=== PATIENT | male | born 1990 | race Caucasian/White ===

== ENCOUNTER 2017-06-18 21:16 | Emergency (ER) | payer OTHER ==
[2017-06-18 21:59] VITALS: BP 144/86
[2017-06-18] MEDS ORDERED: Acetaminop/Codeine 30 MG TAB* 1 TAB (300 MG/30 MG) PO ONE (22:25)
--- NOTE | 2017-06-18 22:28 | UC ---
Respiratory Complaint HPI - HPI Summary HPI Summary: cough and congestion for about two weeks. There is also a sore throat. No fever. - History of Current Complaint Chief Complaint: UCRespiratory Stated Complaint: SORE THROAT/CONGESTION Time Seen by Provider: 06/18/17 22:22 Hx Obtained From: Patient Onset/Duration: Lasting Days, Lasting Weeks Timing: Constant Severity Initially: Moderate Severity Currently: Moderate Aggravating Factors: Deep Breaths, Recumbent Position Alleviating Factors: Upright Position, Spontaneous Resolution Associated Signs And Symptoms: Positive: URI, Nasal Congestion, Hoarseness. Negative: Dyspnea, Fever, Chills - Risk Factors Pulmonary Embolism Risk Factors: Negative - Allergies/Home Medications Allergies/Adverse Reactions: Allergies Allergy/AdvReac Type Severity Reaction Status Date / Time No Known Allergies Allergy Verified 06/18/17 21:59 PMH/Surg Hx/FS Hx/Imm Hx Previously Healthy: No - smoker. - Surgical History Surgical History: None - Family History Known Family History: Positive: Cardiac Disease, Hypertension - Social History Alcohol Use: Occasionally Substance Use Type: None Substance Use Comment - Amount & Last Used: prior marijuana use- last year Smoking Status (MU): Current Every Day Smoker Type: Cigarettes Amount Used/How Often: 2 CIGS/2WKS Length of Time of Smoking/Using Tobacco: ON AND OFF FOR 8 YRS Have You Smoked in the Last Year: Yes When Did the Patient Quit Smoking/Using Tobacco: 09/03/13 Household Exposure Type: Cigarettes - Immunization History Most Recent Influenza Vaccination: not this season Most Recent Tetanus Shot: unknown Review of Systems ENT: Sore Throat, Nasal Discharge Respiratory: Cough All Other Systems Reviewed And Are Negative: Yes Physical Exam Triage Information Reviewed: Yes Appearance: Well-Appearing, No Pain Distress, Well-Nourished Vital Signs: Initial Vital Signs Temp 98.9 F 06/18/17 21:55 Pulse 94 06/18/17 21:55 Resp 16 06/18/17 21:55 BP 144/86 06/18/17 21:55 Pulse Ox 100 06/18/17 21:55 Vital Signs Reviewed: Yes Eyes: Positive: Conjunctiva Clear ENT: Positive: Normal ENT inspection, Pharyngeal erythema, Nasal congestion, TMs normal. Negative: Nasal drainage, TM bulging, TM dull, TM red, Tonsillar swelling, Tonsillar exudate, Trismus, Muffled voice, Hoarse voice, Dental tenderness Neck: Positive: Supple, Nontender, No Lymphadenopathy Respiratory: Positive: Chest non-tender, Lungs clear, Normal breath sounds, No respiratory distress, No accessory muscle use, Respiratory distress Cardiovascular: Positive: RRR, No Murmur, Pulses Normal, Brisk Capillary Refill Abdomen Description: Positive: Nontender, No Organomegaly, Soft Musculoskeletal: Positive: Strength Intact, ROM Intact, No Edema Neurological: Positive: Alert, Muscle Tone Normal Skin: Negative: rashes UC Diagnostic Evaluation - Laboratory O2 Sat by Pulse Oximetry: 100 Respiratory Course/Dx - Differential Dx/Diagnosis Provider Diagnoses: acute bronchitis Discharge - Discharge Plan Condition: Good Disposition: HOME Prescriptions: Acetaminop/Codeine 30 MG TAB* [Tylenol/Codeine 30 MG TAB*] 1 tab PO Q8H PRN #20 tab MDD 3 PRN Reason: Cough Azithromyxin SAGAR (NF) [Z-Sagar (Zithromax) 250 mg tabs #6] 2 tab PO .TODAY, THEN 1 DAILY #6 tab Patient Education Materials: Upper Respiratory Infection (ED) Referrals: Izaiah Sloan MD [Primary Care Provider] - If Needed Additional Instructions: Start taking robitussin DM as well.
== END 2017-06-18 22:33 | disposition home or self-care (01) ==
LOC: UCCORT 21:16
DX: J20.9 Acute bronchitis, unspecified (principal); Z72.0 Tobacco use
CPT/HCPCS: 99212; A9270-GY; G0463

== ENCOUNTER 2018-01-23 15:36 | Emergency (ER) | payer OTHER ==
[2018-01-23 17:04] VITALS: BP 136/89
--- NOTE | 2018-01-23 17:10 | UC ---
Throat Pain/Nasal Deep HPI - HPI Summary HPI Summary: Sore throat began 2 days ago. Had a cough earlier in the week and some nasal drainage. Fever began today. no known illness exposures - History of Current Complaint Hx Obtained From: Patient Onset/Duration: Sudden Onset, Lasting Days - 4, Worse Since - Past 2 days Pain Intensity: 8 Pain Scale Used: 0-10 Numeric Cough: Nonproductive Associated Signs & Symptoms: Positive: Nasal Discharge, Fever <Za Daniel - Last Filed: 01/23/18 17:18> <Jeanne Shipman - Last Filed: 01/23/18 18:15> - History of Current Complaint Chief Complaint: UCGeneralIllness Stated Complaint: SORE THROAT, ACHES Time Seen by Provider: 01/23/18 16:57 - Allergies/Home Medications Allergies/Adverse Reactions: Allergies Allergy/AdvReac Type Severity Reaction Status Date / Time No Known Allergies Allergy Verified 06/18/17 21:59 Home Medications: Home Medications Montelukast Sodium TAB* [Singulair 10 MG TAB*] 10 mg PO BEDTIME 01/23/18 [ History Confirmed 01/23/18] PMH/Surg Hx/FS Hx/Imm Hx Previously Healthy: Yes - Surgical History Surgical History: None - Family History Known Family History: Positive: Cardiac Disease, Hypertension - Social History Occupation: Employed Full-time - In in the exact same reason to is the second row behind, probably a [employer] Lives: With Family Alcohol Use: Occasionally Substance Use Type: None Substance Use Comment - Amount & Last Used: prior marijuana use- last year Smoking Status (MU): Current Every Day Smoker Type: Cigarettes Amount Used/How Often: 1 pk per wk Length of Time of Smoking/Using Tobacco: ON AND OFF FOR 7 YRS Have You Smoked in the Last Year: Yes When Did the Patient Quit Smoking/Using Tobacco: 09/03/13 Household Exposure Type: Cigarettes - Immunization History Most Recent Influenza Vaccination: not this season Most Recent Tetanus Shot: unknown <Za Daniel - Last Filed: 01/23/18 17:18> Review of Systems Constitutional: Fever, Chills, Fatigue Skin: Negative Eyes: Negative ENT: Negative, Sore Throat Respiratory: Negative Cardiovascular: Negative Gastrointestinal: Negative Genitourinary: Negative Motor: Negative Neurovascular: Negative Musculoskeletal: Negative, Arthralgia Neurological: Negative, Headache Psychological: Negative Is Patient Immunocompromised?: No All Other Systems Reviewed And Are Negative: Yes <Za Daniel - Last Filed: 01/23/18 17:18> Physical Exam Triage Information Reviewed: Yes Appearance: Well-Nourished, Ill-Appearing, Pain Distress Vital Signs: Initial Vital Signs Temp 100.3 F 01/23/18 16:59 Pulse 109 01/23/18 16:59 Resp 18 01/23/18 16:59 BP 136/89 01/23/18 16:59 Pulse Ox 99 01/23/18 16:59 Vital Signs Reviewed: Yes Eye Exam: Normal Eyes: Positive: Conjunctiva Clear ENT Exam: Normal ENT: Positive: Normal ENT inspection, Hearing grossly normal, Pharyngeal erythema, Nasal congestion, TMs normal, Uvula midline. Negative: Trismus, Muffled voice, Hoarse voice, Dental tenderness, Sinus tenderness Dental Exam: Normal Neck exam: Normal Neck: Positive: Supple, Nontender, No Lymphadenopathy Respiratory Exam: Normal Respiratory: Positive: Chest non-tender, Lungs clear, Normal breath sounds, No respiratory distress, No accessory muscle use Cardiovascular Exam: Normal Cardiovascular: Positive: RRR, No Murmur, Pulses Normal, Brisk Capillary Refill Musculoskeletal Exam: Normal Musculoskeletal: Positive: Strength Intact, ROM Intact Neurological Exam: Normal Neurological: Positive: Alert, Muscle Tone Normal Psychological Exam: Normal Skin Exam: Normal <Za Daniel - Last Filed: 01/23/18 17:18> Vital Signs: Initial Vital Signs Temp 100.3 F 01/23/18 16:59 Pulse 109 01/23/18 16:59 Resp 18 01/23/18 16:59 BP 136/89 01/23/18 16:59 Pulse Ox 99 01/23/18 16:59 <Jeanne Shipman - Last Filed: 01/23/18 18:15> Diagnostics - Laboratory Diagnostic Studies Completed/Ordered: RST (+) <Za Daniel - Last Filed: 01/23/18 17:18> Throat Pain/Nasal Course/Dx - Course Assessment/Plan: Amoxicillin, pain control follow with pcp prn - Differential Dx/Diagnosis Provider Diagnoses: Strep pharyngitis <Za Daniel - Last Filed: 01/23/18 17:18> Discharge - Sign-Out/Discharge Documenting (check all that apply): Discharge/Admit/Transfer - Billing Disposition and Condition Condition: STABLE Disposition: Home <Za Daniel - Last Filed: 01/23/18 17:18> - Billing Disposition and Condition Condition: STABLE Disposition: Home <Jeanne Shipman - Last Filed: 01/23/18 18:15> - Discharge Plan Condition: Stable Disposition: HOME Prescriptions: Amoxicillin PO (*) [Amoxicillin 875 MG (*)] 875 mg PO BID #20 tab Hydrocodone/Acetaminophen [Hydrocodone-Acetamin 5-325 mg] 1 each PO QID PRN #6 tablet MDD 4 PRN Reason: pain Patient Education Materials: Strep Throat (ED) Referrals: Izaiah Sloan MD [Primary Care Provider] - If Needed Attestation Statement User Type: Provider - I was available for consult. This patient was seen by the [facility]. The patient was not presented to, seen by, or examined by me. -Jeremiasj <Jeanne Shipman - Last Filed: 01/23/18 18:15>
== END 2018-01-23 17:22 | disposition home or self-care (01) ==
LOC: UCCORT 15:36
DX: J02.0 Streptococcal pharyngitis (principal); R09.89 Other specified symptoms and signs involving the circulatory and respiratory systems; F17.210 Nicotine dependence, cigarettes, uncomplicated
CPT/HCPCS: 87651; 99212; G0463

== ENCOUNTER 2018-01-25 19:41 | Emergency (ER) | payer OTHER ==
[2018-01-25] MEDS ORDERED: Albuterol/Ipratropium NEB.SOL* Albuterol 2.5 MG/Ipratropium 0.5 MG 3 ML ONE (20:40)
[2018-01-25] MEDS ORDERED: Cephalexin CAP* 500 MG PO ONE ×3 (21:04→21:25)
[2018-01-25 21:07] VITALS: BP 134/99
--- NOTE | 2018-01-25 21:07 | UC ---
Skin Complaint HPI - HPI Summary HPI Summary: patient had a :fungal rash between 4/5 toe on left foot and behind 2/3 toe left foot----is now worse (from sweating and scratching) is crusted and scabbed, with 4-cm of erythema no streaking chills or fever. Patient states when he gets home after work his toes or wet and wrinkled from the sweat inside of his shoes- --he is also wears black socks - History of Current Complaint Chief Complaint: UCSkin Time Seen by Provider: 01/25/18 20:55 Stated Complaint: FOOT SORES Hx Obtained From: Patient Onset/Duration: Gradual Onset, Lasting Weeks, Still Present Onset Severity: Mild Current Severity: Moderate Location: Discrete Character: Redness Aggravating Factor(s): Other - working and sweating Alleviating Factor(s): Nothing Associated Signs & Symptoms: Positive: Drainage, Tenderness - Allergy/Home Medications Allergies/Adverse Reactions: Allergies Allergy/AdvReac Type Severity Reaction Status Date / Time No Known Allergies Allergy Verified 01/25/18 21:01 Home Medications: Home Medications Amphetamine MIXED SALT TAB* [Adderall TAB*] 30 mg DAILY 01/25/18 [History Confirmed 01/25/18] Review of Systems Constitutional: Negative Skin: Other - scabbed itching area between left 4/5 toe, peeling skin behind left 2/3 toe Eyes: Negative ENT: Negative Respiratory: Negative Cardiovascular: Negative Gastrointestinal: Negative Genitourinary: Negative Motor: Negative Neurovascular: Negative Musculoskeletal: Negative Neurological: Negative Psychological: Negative Is Patient Immunocompromised?: No All Other Systems Reviewed And Are Negative: Yes PMH/Surg Hx/FS Hx/Imm Hx Previously Healthy: No - ADHD Respiratory History: Asthma - Surgical History Surgical History: None - Family History Known Family History: Positive: Cardiac Disease, Hypertension - Social History Occupation: Employed Full-time Lives: With Family Alcohol Use: Occasionally Substance Use Type: None Substance Use Comment - Amount & Last Used: prior marijuana use- last year Smoking Status (MU): Current Every Day Smoker Type: Cigarettes Amount Used/How Often: 1 pk per wk Length of Time of Smoking/Using Tobacco: ON AND OFF FOR 7 YRS Have You Smoked in the Last Year: Yes When Did the Patient Quit Smoking/Using Tobacco: 09/03/13 Household Exposure Type: Cigarettes - Immunization History Most Recent Influenza Vaccination: not this season Most Recent Tetanus Shot: unknown Physical Exam Triage Information Reviewed: Yes Appearance: Well-Appearing, No Pain Distress, Obese Vital Signs Reviewed: Yes Eye Exam: Normal Eyes: Positive: Conjunctiva Clear ENT Exam: Normal ENT: Positive: Normal ENT inspection, Hearing grossly normal. Negative: Muffled voice, Hoarse voice, Dental tenderness Dental Exam: Normal Neck exam: Normal Neck: Positive: Supple, Nontender Respiratory Exam: Normal Respiratory: Positive: Chest non-tender, No respiratory distress, No accessory muscle use Cardiovascular Exam: Normal Cardiovascular: Positive: RRR, No Murmur, Brisk Capillary Refill Musculoskeletal Exam: Normal Musculoskeletal: Positive: Strength Intact, ROM Intact, No Edema Neurological Exam: Normal Neurological: Positive: Alert, Muscle Tone Normal Psychological Exam: Normal Skin Exam: Normal Skin: Positive: breakdown - behind 2/3 toes and between 4/5 toes on right foot Course/Dx - Course Course Of Treatment: --antifungal cream, keflex, culture wound, white socks and change frequently, refused work note. follow with pcp - Diagnoses Provider Diagnoses: fungal infection left foot with secondary cellulitis Discharge - Sign-Out/Discharge Documenting (check all that apply): Discharge/Admit/Transfer - Discharge Plan Condition: Stable Disposition: HOME Prescriptions: Cephalexin CAP* [Keflex CAP*] 500 mg PO QID #28 cap Patient Education Materials: Antifungals (On the skin), Cellulitis (ED), Jock Itch (ED) Referrals: Izaiah Sloan MD [Primary Care Provider] - 1 Week - Billing Disposition and Condition Condition: STABLE Disposition: Home
--- NOTE | 2018-01-26 16:03 | ED ---
Progress - Progress Note Progress Note: Patient on keflex, culture comes back MRSA. Script changed from keflex to bactrim DS. Nurses notified and will call to update the patient. Course/Dx - Course Course Of Treatment: --antifungal cream, keflex, culture wound, white socks and change frequently, refused work note. follow with pcp Discharge - Sign-Out/Discharge Documenting (check all that apply): Discharge/Admit/Transfer - Discharge Plan Condition: Stable Disposition: HOME Prescriptions: Cephalexin CAP* [Keflex CAP*] 500 mg PO QID #28 cap Sulfamethox/Trimethoprim DS* [Bactrim DS 800/160 TAB*] 1 tab PO BID #20 tab Patient Education Materials: Antifungals (On the skin), Cellulitis (ED), Jock Itch (ED) Referrals: Izaiah Sloan MD [Primary Care Provider] - 1 Week - Billing Disposition and Condition Condition: STABLE Disposition: Home
== END 2018-01-25 21:31 | disposition home or self-care (01) ==
LOC: UCCORT 19:41
DX: B35.3 Tinea pedis (principal); L03.116 Cellulitis of left lower limb; E66.9 Obesity, unspecified; F17.210 Nicotine dependence, cigarettes, uncomplicated
CPT/HCPCS: 87070; 87077; 87186; 87205; 87640; 87641; 99212; A9270-GY; G0463

== ENCOUNTER 2018-01-27 17:37 | Emergency (ER) | payer OTHER ==
[2018-01-27 19:01] VITALS: BP 150/89
--- NOTE | 2018-01-27 19:53 | UC ---
Skin Complaint HPI - HPI Summary HPI Summary: here to get foot rechecked and straighten out antibiodic RX. also has some sores inside of his nose-- - History of Current Complaint Chief Complaint: UCSkin Time Seen by Provider: 01/27/18 19:25 Stated Complaint: SKIN COMPLAINT Hx Obtained From: Patient Onset/Duration: Gradual Onset, Lasting Days Timing: Constant Pain Intensity: 0 Location: Discrete Aggravating Factor(s): Nothing Alleviating Factor(s): Treatment [employer]IST: - keflex has been helping - Allergy/Home Medications Allergies/Adverse Reactions: Allergies Allergy/AdvReac Type Severity Reaction Status Date / Time No Known Allergies Allergy Verified 01/27/18 19:01 Home Medications: Home Medications Cetirizine* [ZyrTEC 10 MG TAB*] 10 mg PO DAILY 01/27/18 [History Confirmed 01/27] Review of Systems Constitutional: Negative Skin: Other - scabbing drainage pain and redness improving left 4/5 toe and behind toes Eyes: Negative ENT: Other - sore red sores inside nose Respiratory: Negative Cardiovascular: Negative Gastrointestinal: Negative Genitourinary: Negative Motor: Negative Neurovascular: Negative Musculoskeletal: Negative Neurological: Negative Psychological: Negative Is Patient Immunocompromised?: No All Other Systems Reviewed And Are Negative: Yes PMH/Surg Hx/FS Hx/Imm Hx Previously Healthy: Yes - Surgical History Surgical History: None - Family History Known Family History: Positive: Cardiac Disease, Hypertension - Social History Occupation: Employed Full-time Lives: With Family Alcohol Use: Occasionally Substance Use Type: None Substance Use Comment - Amount & Last Used: prior marijuana use- last year Smoking Status (MU): Current Every Day Smoker Type: Cigarettes Amount Used/How Often: 1 pk per wk Length of Time of Smoking/Using Tobacco: ON AND OFF FOR 7 YRS Have You Smoked in the Last Year: Yes When Did the Patient Quit Smoking/Using Tobacco: 09/03/13 Household Exposure Type: Cigarettes - Immunization History Most Recent Influenza Vaccination: not this season Most Recent Tetanus Shot: unknown Physical Exam Triage Information Reviewed: Yes Appearance: Well-Appearing, No Pain Distress, Well-Nourished Vital Signs: Initial Vital Signs Temp 98.1 F 01/27/18 18:54 Pulse 95 01/27/18 18:54 Resp 18 01/27/18 18:54 BP 150/89 01/27/18 18:54 Pulse Ox 99 01/27/18 18:54 Vital Signs Reviewed: Yes Eye Exam: Normal Eyes: Positive: Conjunctiva Clear ENT Exam: Normal ENT: Positive: Normal ENT inspection, Hearing grossly normal, Pharynx normal, TMs normal, Tonsillar swelling, Tonsillar exudate, Other - red irratation and sore in left nostril Dental Exam: Normal Neck exam: Normal Neck: Positive: Supple, Nontender, No Lymphadenopathy Respiratory Exam: Normal Respiratory: Positive: Chest non-tender, Lungs clear, Normal breath sounds, No respiratory distress, No accessory muscle use Cardiovascular Exam: Normal Cardiovascular: Positive: RRR, No Murmur, Pulses Normal, Brisk Capillary Refill Musculoskeletal Exam: Normal Musculoskeletal: Positive: Strength Intact, ROM Intact, No Edema Neurological Exam: Normal Neurological: Positive: Alert, Muscle Tone Normal Psychological Exam: Normal Psychological: Positive: Normal Response To Family Skin: Positive: Other - resovling rash erythema drainage 4/5 toes, less pain and tenderness Course/Dx - Course Course Of Treatment: stop amoxicillin,, continue keflex and bactrim, and soap and water wash, antifungal cream, bactroban in nose, follow wounds and bp with pcp - Diagnoses Provider Diagnoses: fungal infection with secondary MRSA infection Discharge - Sign-Out/Discharge Documenting (check all that apply): Discharge/Admit/Transfer - Discharge Plan Condition: Stable Disposition: HOME Prescriptions: Mupirocin 2% OINT* [Bactroban 2 % Oint*] 1 applic TOPICAL BID #1 tube Patient Education Materials: MRSA (Methicillin-Resistant Staphylococcus Aureus ) (ED), Hypertension (ED) Referrals: Izaiah Sloan MD [Primary Care Provider] - 2 Weeks Additional Instructions: please take Bactrim and Keflex---you may stop the amoxicillin---- - Billing Disposition and Condition Condition: STABLE Disposition: Home
== END 2018-01-27 20:12 | disposition home or self-care (01) ==
LOC: UCCORT 17:37
DX: B48.8 Other specified mycoses (principal); A49.02 Methicillin resistant Staphylococcus aureus infection, unspecified site; L98.8 Other specified disorders of the skin and subcutaneous tissue; R09.89 Other specified symptoms and signs involving the circulatory and respiratory systems; F17.210 Nicotine dependence, cigarettes, uncomplicated
CPT/HCPCS: 99212; G0463

== ENCOUNTER 2018-02-04 18:22 | Emergency (ER) | payer OTHER ==
[2018-02-04 19:43] VITALS: BP 157/94
--- NOTE | 2018-02-04 20:02 | UC ---
Skin Complaint HPI - HPI Summary HPI Summary: Pt here for recheck of MRSA, bacterial and fungal infection of bilateral plantar aspect of feet. Pt states he completed the prescribed antibiotic an dis using the antifungal cream with improvement of skin but is concerned that the skin is not healing fully. - History of Current Complaint Chief Complaint: UCSkin Time Seen by Provider: 02/04/18 19:50 Stated Complaint: REDNESS,BILATERAL FEET Hx Obtained From: Patient Onset/Duration: Gradual Onset, Lasting Days, Still Present Skin Exposure Onset/Duration: Days Ago Timing: Constant Onset Severity: Moderate Current Severity: Mild Pain Intensity: 2 Location: Discrete, Foot (Right), Foot (Left) Character: Pruritus, Redness Aggravating Factor(s): Touch Alleviating Factor(s): Other - antibiotics, and antifungal Associated Signs & Symptoms: Positive: Rash, Tenderness - Allergy/Home Medications Allergies/Adverse Reactions: Allergies Allergy/AdvReac Type Severity Reaction Status Date / Time No Known Allergies Allergy Verified 01/27/18 19:01 Review of Systems Constitutional: Negative Skin: Other - healing wounds, peeling skin, mild erythema Eyes: Negative ENT: Negative Respiratory: Negative Cardiovascular: Negative Gastrointestinal: Negative Genitourinary: Negative Motor: Negative Neurovascular: Negative Musculoskeletal: Negative, Calf Tenderness Psychological: Negative Is Patient Immunocompromised?: No All Other Systems Reviewed And Are Negative: Yes PMH/Surg Hx/FS Hx/Imm Hx Previously Healthy: Yes - Surgical History Surgical History: None - Family History Known Family History: Positive: Cardiac Disease, Hypertension - Social History Occupation: Employed Full-time Lives: With Family Alcohol Use: Occasionally Substance Use Type: None Substance Use Comment - Amount & Last Used: prior marijuana use- last year Smoking Status (MU): Current Every Day Smoker Type: Cigarettes Amount Used/How Often: 1 pk per wk Length of Time of Smoking/Using Tobacco: ON AND OFF FOR 7 YRS Have You Smoked in the Last Year: Yes When Did the Patient Quit Smoking/Using Tobacco: 09/03/13 Household Exposure Type: Cigarettes - Immunization History Most Recent Influenza Vaccination: not this season Most Recent Tetanus Shot: unknown Physical Exam Triage Information Reviewed: Yes Appearance: Well-Appearing Vital Signs: Initial Vital Signs Temp 98.7 F 02/04/18 19:38 Pulse 109 02/04/18 19:38 Resp 16 02/04/18 19:38 BP 157/94 06/20/18 19:38 Pulse Ox 98 02/04/18 19:38 Vital Signs Reviewed: Yes ENT: Positive: Hearing grossly normal Neck exam: Normal Respiratory: Positive: No respiratory distress Musculoskeletal Exam: Normal Neurological Exam: Normal Psychological Exam: Normal Skin Exam: Other - peeling skin between first -third toes with erythematous skin revealed underneath. Course/Dx - Differential Diagnoses - Skin Complaint Differential Diagnoses: Tinea - Diagnoses Provider Diagnoses: tinea pedis bilateral. healing wounds Discharge - Sign-Out/Discharge Documenting (check all that apply): Discharge/Admit/Transfer - Discharge Plan Condition: Stable Disposition: HOME Prescriptions: Fluconazole 100 MG TAB* [Diflucan 100 MG TAB*] 100 mg PO DAILY #7 tab Patient Education Materials: Athlete's Foot (ED) Referrals: Izaiah Sloan MD [Primary Care Provider] - - Billing Disposition and Condition Condition: STABLE Disposition: Home
== END 2018-02-04 20:08 | disposition home or self-care (01) ==
LOC: UCCORT 18:22
DX: B35.9 Dermatophytosis, unspecified (principal); F17.210 Nicotine dependence, cigarettes, uncomplicated; Z86.14 Personal history of Methicillin resistant Staphylococcus aureus infection
CPT/HCPCS: 99212; G0463

== ENCOUNTER 2018-02-14 19:16 | Emergency (ER) | payer OTHER ==
[2018-02-14 21:23] VITALS: BP 121/87
--- NOTE | 2018-02-14 21:29 | UC ---
Skin Complaint HPI - HPI Summary HPI Summary: C/O rash on the left foot over the last month. Not better. Rx with bactrim and mupiricin and fluconazole. MRSA on culture. - History of Current Complaint Chief Complaint: UCLowerExtremity Time Seen by Provider: 02/14/18 21:22 Stated Complaint: L FOOT SKIN CONDITION Hx Obtained From: Patient Onset/Duration: Gradual Onset, Lasting Weeks - 4, Still Present Onset Severity: Mild Current Severity: Mild Pain Intensity: 2 Location: Foot (Left) - in between the left 4th and 5th toes. - Allergy/Home Medications Allergies/Adverse Reactions: Allergies Allergy/AdvReac Type Severity Reaction Status Date / Time No Known Allergies Allergy Verified 01/27/18 19:01 Review of Systems Skin: Rash Is Patient Immunocompromised?: No All Other Systems Reviewed And Are Negative: Yes PMH/Surg Hx/FS Hx/Imm Hx Other Neurological History: ADHD - Surgical History Surgical History: None - Family History Known Family History: Positive: Cardiac Disease, Hypertension, Diabetes - Social History Occupation: Employed Full-time Lives: With Family Alcohol Use: Occasionally Substance Use Type: None Substance Use Comment - Amount & Last Used: prior marijuana use- last year Smoking Status (MU): Current Every Day Smoker Type: Cigarettes Amount Used/How Often: 1 pk per wk Length of Time of Smoking/Using Tobacco: ON AND OFF FOR 7 YRS Have You Smoked in the Last Year: Yes When Did the Patient Quit Smoking/Using Tobacco: 09/03/13 Household Exposure Type: Cigarettes - Immunization History Most Recent Influenza Vaccination: not this season Most Recent Tetanus Shot: unknown Physical Exam Triage Information Reviewed: Yes Appearance: Well-Appearing, No Pain Distress, Well-Nourished Vital Signs: Initial Vital Signs Temp 98.5 F 02/14/18 21:09 Pulse 98 02/14/18 21:09 Resp 18 02/14/18 21:09 BP 121/87 02/14/18 21:09 Pulse Ox 98 02/14/18 21:09 Vital Signs Reviewed: Yes Eyes: Positive: Conjunctiva Clear Neck exam: Normal Respiratory Exam: Normal Cardiovascular Exam: Normal Musculoskeletal Exam: Normal Neurological Exam: Normal Psychological Exam: Normal Skin: Positive: rashes - Left 4th 5th toe webspace with erythema extending up onto the foot. Course/Dx - Differential Diagnoses - Skin Complaint Differential Diagnoses: Abscess, Cellulitis, Eczema, Tinea - Diagnoses Provider Diagnoses: Cellulitis. Eczema. Tinea pedis Discharge - Sign-Out/Discharge Documenting (check all that apply): Discharge/Admit/Transfer - Discharge Plan Condition: Stable Disposition: HOME Prescriptions: Betamethasone Dip 0.05% ON(NF) [Betamethasone Dipr 0.05% OINT(NF)] 1 applic .SEE ORDER BID #30 gm DOXYcycline CAP(*) [DOXYcycline 100MG CAP(*)] 100 mg PO BID #20 cap Ketoconazole 2 % CREAM (NF) [Nizoral 2% CREAM (NF)] 1 applic TOPICAL BID #30 gm Patient Education Materials: Eczema (ED), Athlete's Foot (ED), MRSA ( Methicillin-Resistant Staphylococcus Aureus) (ED), Doxycycline (By mouth) Referrals: Izaiah Sloan MD [Primary Care Provider] - - Billing Disposition and Condition Condition: STABLE Disposition: Home Images Feet (Multiple View): 1 - Erythema with some induration and maceration and skin thickening and cracking.
[2018-02-14] MEDS: DOXYcycline CAP(*) 100 MG PO ONE ×2 (21:52)
== END 2018-02-14 21:54 | disposition home or self-care (01) ==
LOC: UCCORT 19:16
DX: L03.116 Cellulitis of left lower limb (principal); L30.9 Dermatitis, unspecified; B35.3 Tinea pedis; Z87.891 Personal history of nicotine dependence
CPT/HCPCS: 99212; A9270-GY; G0463

== ENCOUNTER 2018-04-12 08:13 | Emergency (ER) | payer OTHER ==
[2018-04-12 08:42] VITALS: BP 132/89
--- NOTE | 2018-04-12 09:27 | UC ---
General HPI - HPI Summary HPI Summary: sore throat since yesterday. both children with sore throat and fever. no rash or fever in pt. - History of Current Complaint Chief Complaint: UCRespiratory Stated Complaint: THROAT COMPLAINT Time Seen by Provider: 04/12/18 08:26 Hx Obtained From: Patient Onset/Duration: Gradual Onset Timing: Constant Pain Intensity: 3 Aggravating: nothing Associated Signs & Symptoms: Negative: Fever - Allergy/Home Medications Allergies/Adverse Reactions: Allergies Allergy/AdvReac Type Severity Reaction Status Date / Time environmental Allergy Congestion Uncoded 04/12/18 08:43 Home Medications: Home Medications Adderall Instant 10 mg PO QPM 04/12/18 [History] PMH/Surg Hx/FS Hx/Imm Hx - Additional Past Medical History Additional PMH: allergies - Surgical History Surgical History: None - Family History Known Family History: Positive: Cardiac Disease, Hypertension, Diabetes - Social History Lives: With Family Alcohol Use: Occasionally Substance Use Type: None Substance Use Comment - Amount & Last Used: prior marijuana use- last year Smoking Status (MU): Current Every Day Smoker Type: Cigarettes Amount Used/How Often: 1 pk per wk Length of Time of Smoking/Using Tobacco: ON AND OFF FOR 7 YRS Have You Smoked in the Last Year: Yes When Did the Patient Quit Smoking/Using Tobacco: 09/03/13 Household Exposure Type: Cigarettes - Immunization History Most Recent Influenza Vaccination: not this season Most Recent Tetanus Shot: unknown Vaccination Up to Date: Yes Review of Systems Constitutional: Negative Skin: Negative Eyes: Negative ENT: Sore Throat Respiratory: Negative Cardiovascular: Negative Gastrointestinal: Negative Genitourinary: Negative Motor: Negative Neurovascular: Negative Musculoskeletal: Negative Neurological: Negative Psychological: Negative Is Patient Immunocompromised?: No All Other Systems Reviewed And Are Negative: Yes Physical Exam Triage Information Reviewed: Yes Appearance: Well-Appearing Vital Signs: Initial Vital Signs Temp 97.9 F 04/12/18 08:38 Pulse 76 04/12/18 08:38 Resp 16 04/12/18 08:38 BP 132/89 04/12/18 08:38 Pulse Ox 98 04/12/18 08:38 Vital Signs Reviewed: Yes Eyes: Positive: Conjunctiva Clear ENT: Positive: Pharyngeal erythema, TMs normal. Negative: Nasal congestion, Nasal drainage Neck: Positive: Supple, Nontender, No Lymphadenopathy Respiratory: Positive: Lungs clear, Normal breath sounds Cardiovascular: Positive: RRR, No Murmur Abdomen Description: Positive: Nontender, No Organomegaly, Soft Bowel Sounds: Positive: Present Musculoskeletal: Positive: ROM Intact Neurological: Positive: Alert Psychological: Positive: Normal Response To Family, Age Appropriate Behavior Skin Exam: Normal Skin: Negative: rashes Diagnostics - Laboratory Diagnostic Studies Completed/Ordered: rapid strep=neg Course/Dx - Course Course Of Treatment: rapid strep=neg. tx supportive - Differential Dx - Multi-Symptom Provider Diagnoses: sore throat Discharge - Sign-Out/Discharge Documenting (check all that apply): Patient Departure All imaging exams completed and their final reports reviewed: No Studies - Discharge Plan Condition: Stable Disposition: HOME Patient Education Materials: Pharyngitis (ED) Referrals: Izaiah Sloan MD [Primary Care Provider] - 7 Days - Billing Disposition and Condition Condition: STABLE Disposition: Home
== END 2018-04-12 09:41 | disposition home or self-care (01) ==
LOC: UCCORT 08:13
DX: J02.9 Acute pharyngitis, unspecified (principal); F17.210 Nicotine dependence, cigarettes, uncomplicated; Z91.09 Other allergy status, other than to drugs and biological substances
CPT/HCPCS: 87651; 99211; G0463

== ENCOUNTER 2018-04-28 19:51 | Emergency (ER) | payer OTHER ==
[2018-04-28 20:20] VITALS: BP 150/96
--- NOTE | 2018-04-28 20:42 | UC ---
Throat Pain/Nasal Deep HPI - HPI Summary HPI Summary: 27-year-old male coming in with a sore throat. His son recently had strep throat. He's had white exudates on the tonsils. Hurts to swallow. He's had some rhinorrhea. A dry cough. No chest congestion. No fever today. No abdominal pain. - History of Current Complaint Chief Complaint: UCGeneralIllness Stated Complaint: SORE THROAT Time Seen by Provider: 04/28/18 20:32 Pain Intensity: 3 - Allergies/Home Medications Allergies/Adverse Reactions: Allergies Allergy/AdvReac Type Severity Reaction Status Date / Time environmental Allergy Congestion Uncoded 04/28/18 20:20 PMH/Surg Hx/FS Hx/Imm Hx Previously Healthy: Yes Other Endocrine History: ADHD - Surgical History Surgical History: None - Family History Known Family History: Positive: Cardiac Disease, Hypertension, Diabetes - Social History Alcohol Use: Occasionally Substance Use Type: None Substance Use Comment - Amount & Last Used: prior marijuana use- last year Smoking Status (MU): Current Every Day Smoker Type: Cigarettes Amount Used/How Often: 1 pk per wk Length of Time of Smoking/Using Tobacco: ON AND OFF FOR 7 YRS Have You Smoked in the Last Year: Yes When Did the Patient Quit Smoking/Using Tobacco: 09/03/13 Household Exposure Type: Cigarettes - Immunization History Most Recent Influenza Vaccination: not this season Most Recent Tetanus Shot: unknown Vaccination Up to Date: Yes Review of Systems Constitutional: Negative Skin: Negative Eyes: Negative ENT: Sore Throat, Nasal Discharge, Sinus Congestion, Sinus Pain/Tenderness Respiratory: Negative Cardiovascular: Negative Gastrointestinal: Negative Genitourinary: Negative Motor: Negative Neurovascular: Negative Musculoskeletal: Negative Neurological: Negative Psychological: Negative Is Patient Immunocompromised?: No All Other Systems Reviewed And Are Negative: Yes Physical Exam Triage Information Reviewed: Yes Appearance: Well-Appearing, No Pain Distress, Well-Nourished Vital Signs: Initial Vital Signs Temp 98.4 F 04/28/18 20:17 Pulse 108 04/28/18 20:17 Resp 18 04/28/18 20:17 BP 150/96 04/28/18 20:17 Pulse Ox 99 04/28/18 20:17 Vital Signs Reviewed: Yes Eye Exam: Normal Eyes: Positive: Conjunctiva Clear ENT: Positive: Nasal congestion, Nasal drainage, TMs normal, Tonsillar swelling , Tonsillar exudate. Negative: Trismus, Muffled voice Neck exam: Normal Neck: Positive: Supple Respiratory Exam: Normal Respiratory: Positive: Lungs clear, Normal breath sounds, No respiratory distress Cardiovascular: Positive: Tachycardia Abdominal Exam: Normal Musculoskeletal Exam: Normal Musculoskeletal: Positive: Strength Intact, ROM Intact Neurological Exam: Normal Psychological Exam: Normal Skin Exam: Normal Throat Pain/Nasal Course/Dx - Course Course Of Treatment: DISCUSSED VIRAL VERSES BACTERIAL INFECTION AND THE ROLE OF ANTIBIOTICS. THE PATIENT WISHES TO BE ON ANTIBIOTICS AT THIS TIME. - Differential Dx/Diagnosis Provider Diagnoses: TONSILLITIS Discharge - Sign-Out/Discharge Documenting (check all that apply): Patient Departure All imaging exams completed and their final reports reviewed: No Studies - Discharge Plan Condition: Stable Disposition: HOME Prescriptions: Amoxicillin PO (*) [Amoxicillin 875 MG (*)] 875 mg PO BID #20 tab Patient Education Materials: Tonsillitis (ED) Referrals: Izaiah Sloan MD [Primary Care Provider] - Additional Instructions: FOLLOW UP WITH YOUR DOCTOR. GET RECHECKED FOR ANY WORSENING OF YOUR CONDITION OR QUESTIONS OR CONCERNS. - Billing Disposition and Condition Condition: STABLE Disposition: Home - Attestation Statements Document Initiated by Scribe: Rose
== END 2018-04-28 20:48 | disposition home or self-care (01) ==
LOC: UCCORT 19:51
DX: J03.90 Acute tonsillitis, unspecified (principal); Z20.828 Contact with and (suspected) exposure to other viral communicable diseases; F17.210 Nicotine dependence, cigarettes, uncomplicated
CPT/HCPCS: 87651; 99212; G0463

== ENCOUNTER 2018-05-16 15:48 | Emergency (ER) | payer OTHER ==
[2018-05-16 16:26] VITALS: BP 134/99
--- NOTE | 2018-05-16 17:19 | UC ---
Throat Pain/Nasal Deep HPI - HPI Summary HPI Summary: C/O sore throat x 1 week worse on the left side. Congestion and cough. H/O strep. - History of Current Complaint Stated Complaint: ST,DIFFICULTY SWALLOWING Hx Obtained From: Patient Onset/Duration: Gradual Onset, Lasting Weeks - 1, Still Present Severity: Moderate Pain Intensity: 8 Cough: Nonproductive Associated Signs & Symptoms: Positive: Dysphagia, Nasal Discharge. Negative: Wheezing, Hoarseness, Sinus Discomfort Related History: Seasonal Allergies - Allergies/Home Medications Allergies/Adverse Reactions: Allergies Allergy/AdvReac Type Severity Reaction Status Date / Time environmental Allergy Congestion Uncoded 04/28/18 20:20 PMH/Surg Hx/FS Hx/Imm Hx Previously Healthy: Yes - Surgical History Surgical History: None Surgery Procedure, Year, and Place: denies - Family History Known Family History: Positive: Cardiac Disease, Hypertension, Diabetes - Social History Occupation: Employed Full-time Lives: With Family Alcohol Use: Occasionally Substance Use Type: None Substance Use Comment - Amount & Last Used: prior marijuana use- last year Smoking Status (MU): Light Every Day Tobacco Smoker Type: Cigarettes Amount Used/How Often: 1 pk per wk Length of Time of Smoking/Using Tobacco: ON AND OFF FOR 7 YRS Have You Smoked in the Last Year: Yes When Did the Patient Quit Smoking/Using Tobacco: 09/03/13 Household Exposure Type: Cigarettes Cessation Counseling: Patient Advised to Stop - Immunization History Most Recent Influenza Vaccination: not this season Most Recent Tetanus Shot: unknown Vaccination Up to Date: Yes Review of Systems ENT: Sore Throat, Nasal Discharge Respiratory: Cough Is Patient Immunocompromised?: No All Other Systems Reviewed And Are Negative: Yes Physical Exam Triage Information Reviewed: Yes Appearance: No Pain Distress, Well-Nourished Vital Signs: Initial Vital Signs Temp 98.5 F 05/16/18 16:21 Pulse 103 05/16/18 16:21 Resp 18 05/16/18 16:21 BP 134/99 05/16/18 16:21 Pulse Ox 98 05/16/18 16:21 Vital Signs Reviewed: Yes Eyes: Positive: Conjunctiva Clear ENT: Positive: Pharynx normal, Nasal congestion, TMs normal, Tonsillar swelling Neck exam: Normal Respiratory: Positive: Wheezing - Mild expiratory wheeze with coughing. Cardiovascular Exam: Normal Musculoskeletal Exam: Normal Neurological Exam: Normal Psychological Exam: Normal Skin Exam: Normal Throat Pain/Nasal Course/Dx - Differential Dx/Diagnosis Differential Diagnosis/HQI/PQRI: Laryngitis, Pharyngitis, Sinusitis, URI Provider Diagnoses: Acute URI. Allergic rhinitis Discharge - Sign-Out/Discharge Documenting (check all that apply): Patient Departure All imaging exams completed and their final reports reviewed: No Studies - Discharge Plan Condition: Stable Disposition: HOME Prescriptions: Fluticasone NASAL SPRAY 50MCG* [Flonase NASAL SPRAY 50MCG*] 2 spray BOTH NARES DAILY #1 btl Montelukast Sodium 10 mg PO BEDTIME #30 tablet Patient Education Materials: Upper Respiratory Infection (DC), Allergic Rhinitis (ED) Referrals: Izaiah Sloan MD [Primary Care Provider] - Additional Instructions: NEILMED SINUS RINSE: CHECK OUT AT [employer] Saline nasal wash helps with mucous, allergies and congestion. It can be used up to twice a day or only as needed. Use lukewarm tap water. It does not have to be sterilized or distilled water. Do 1/3 on each side and snort out of both nostrils. Repeat the process with 1/6 of the bottle on each side with snorting in between to finish the solution in the bottle - Billing Disposition and Condition Condition: STABLE Disposition: Home
== END 2018-05-16 17:44 | disposition home or self-care (01) ==
LOC: UCCORT 15:48
DX: J06.9 Acute upper respiratory infection, unspecified (principal); J30.9 Allergic rhinitis, unspecified
CPT/HCPCS: 87651; 99212; G0463

== ENCOUNTER 2018-07-23 21:36 | Emergency (ER) | payer OTHER ==
[2018-07-23 21:54] VITALS: BP 145/89
[2018-07-23] MEDS ORDERED: Benzonatate CAP* 100 MG PO ONE (22:25)
--- NOTE | 2018-07-23 22:25 | UC ---
Throat Pain/Nasal Deep HPI - HPI Summary HPI Summary: 3 days of sore throat, malaise, cough with poor sleep. Concerned that he has strep. Changed to vaping in preference to cigarette smoking 2 months ago. - History of Current Complaint Chief Complaint: UCGeneralIllness Stated Complaint: SORE THOAT Time Seen by Provider: 07/23/18 22:18 Hx Obtained From: Patient Onset/Duration: Gradual Onset, Lasting Days - 3 Severity: Moderate Pain Intensity: 6 Cough: Nonproductive Associated Signs & Symptoms: Positive: Sinus Discomfort - Allergies/Home Medications Allergies/Adverse Reactions: Allergies Allergy/AdvReac Type Severity Reaction Status Date / Time environmental Allergy Congestion Uncoded 07/23/18 21:54 PMH/Surg Hx/FS Hx/Imm Hx Previously Healthy: Yes Psychological History: Other - attention deficit disorder. - Surgical History Surgical History: None Surgery Procedure, Year, and Place: denies - Family History Known Family History: Positive: Cardiac Disease, Hypertension, Diabetes - Social History Occupation: Employed Full-time Alcohol Use: Occasionally Substance Use Type: None Substance Use Comment - Amount & Last Used: prior marijuana use- last year Smoking Status (MU): Light Every Day Tobacco Smoker Type: eCigarettes Amount Used/How Often: 1 pk per wk Length of Time of Smoking/Using Tobacco: ON AND OFF FOR 7 YRS Have You Smoked in the Last Year: Yes When Did the Patient Quit Smoking/Using Tobacco: 09/03/13 Household Exposure Type: Cigarettes - Immunization History Most Recent Influenza Vaccination: not this season Most Recent Tetanus Shot: unknown Vaccination Up to Date: Yes Review of Systems All Other Systems Reviewed And Are Negative: Yes Constitutional: Positive: Fatigue Skin: Positive: Negative Eyes: Positive: Negative ENT: Positive: Sore Throat, Nasal Discharge, Sinus Congestion Respiratory: Positive: Negative Cardiovascular: Positive: Negative Gastrointestinal: Positive: Negative Genitourinary: Positive: Negative Motor: Positive: Negative Neurovascular: Positive: Negative Musculoskeletal: Positive: Negative Neurological: Positive: Negative Psychological: Positive: Negative Is Patient Immunocompromised?: No Physical Exam Triage Information Reviewed: Yes Appearance: Ill-Appearing - looks mildly unwell, Obese Vital Signs: Initial Vital Signs Temp 97.6 F 07/23/18 21:51 Pulse 98 07/23/18 21:51 Resp 15 07/23/18 21:51 BP 145/89 07/23/18 21:51 Pulse Ox 99 07/23/18 21:51 Eyes: Positive: Conjunctiva Inflamed - mild injection ENT: Positive: Pharyngeal erythema Neck: Positive: Supple, Nontender, No Lymphadenopathy Respiratory: Positive: Lungs clear, Normal breath sounds Cardiovascular: Positive: RRR, No Murmur Musculoskeletal Exam: Normal Neurological Exam: Normal Psychological Exam: Normal Skin Exam: Normal Throat Pain/Nasal Course/Dx - Course Course Of Treatment: symptomatic treatment. - Differential Dx/Diagnosis Differential Diagnosis/HQI/PQRI: Laryngitis, Pharyngitis, Tonsillitis, URI Provider Diagnosis: URI, acute Discharge - Sign-Out/Discharge Documenting (check all that apply): Patient Departure All imaging exams completed and their final reports reviewed: No Studies - Discharge Plan Condition: Stable Disposition: HOME Prescriptions: Benzonatate CAP* [Tessalon 100 MG CAP*] 100 mg PO TID PRN #30 cap PRN Reason: Cough Referrals: Izaiah Sloan MD [Primary Care Provider] - Additional Instructions: Continue symptomatic treatment of viral illness. Use tessalon perles for suppression of cough. - Billing Disposition and Condition Condition: STABLE Disposition: Home
== END 2018-07-23 22:36 | disposition home or self-care (01) ==
LOC: UCCORT 21:36
DX: J06.9 Acute upper respiratory infection, unspecified (principal); F17.210 Nicotine dependence, cigarettes, uncomplicated
CPT/HCPCS: 87651; 99212; A9270-GY; G0463

== ENCOUNTER 2018-07-26 12:26 | Emergency (ER) | payer OTHER ==
--- OUTSIDE RECORDS SUMMARY | 2018-07-26 12:35 | XMS REPORT | Continuity of Care Document ---
:1990 External Reference #:[id number] Author Name Izaiah Sloan M.D. Address [address] [facility] [place] [address] Care Team Providers Name Role Phone Izaiah Sloan M.D. Care Team Information Medical Dir Unavailable Payers Type Date Identification Numbers Payment Provider Subscriber Policy Number: [id number] [facility] Jordyn Joseph PayID: [id number] [address] [place] [address] Advance Directives Description No Information Available Problems Description No Information Family History Date Family Member(s) Problem(s) Comments Father Diabetes Mellitus Type 2 Mother Diabetes Mellitus Type 2 First Daughter No Current Problems Social History Type Date Description Comments Sex Unknown Education Highest level completed, Vocational Degree Lives With Spouse Lives With Daughter Lives With Son Smoke-Free Home is smoke-free Occupation Manufacturing [employer] Tobacco Use Start: Unknown End: Quit Unknown Tobacco Use Start: Unknown vape ETOH Use Occasionally consumes alcohol Recreational Drug Use Denies Drug Use Tobacco Use Reviewed: 07/24/18 Patient is a current smoker, vape smokes some days Smoking Status Reviewed: 07/24/18 Patient is a current smoker, vape smokes some days Tattoo/Piercing Pierced ears Tattoo/Piercing Pierced nipples Tattoo/Piercing Pierced tongue Sun Exposure Does not use sunscreen Sun Exposure 11/23/2015 Uses greater than 30 SPF Seat Belt/Car Seat Sometimes uses seat belt Smoke Alarms Yes Allergies, Adverse Reactions, Alerts Date Description Reaction Status Severity Comments 01/18/2015 NKDA Active 02/24/2018 Environmental Active Medications Medication Date Status Form Strength Qnty SIG Indications Ordering Provider Prednisone 12/07/ Hx Tablets 20mg 18tab 3 tab by J98.01 Nathalia, 2018 - s mouth every Renny. 08/02/ day for 3 M.D. 2018 days then 2 by mouth daily for 3 days then 1 by mouth daily for 3 days Amphetamine-Dex 02/24/ Active Tablets 10mg 30tab 1 tab by F90.1 christo Sloanamphetamine 2018 s mouth every Renny. day in the M.D. afternoon Drysol 02/15/ Active Solution 20% 60ml apply to Nathalia2017 affected Renny. area 2-3 M.D. times a week at bed. wash off in in the morning Montelukast 10/04/ Active Tablets 10mg 30tab 1 tab by J45.20 Nathalia Sodium 2017 s mouth every Renny. evening M.D. Amphetamine-Dex 10/04/ Active Caps ER 30mg 30cap 1 by mouth F90.1 ashok Sloanet ER 2017 24HR s every day RennyCurtis MChelsie Acetaminophen 11/16/ Active Tablets 500mg 2 by mouth Nathalia Extra Strength 2015 every 4 Renny. times per M.D. day. Cetirizine HCL 00/ Active Tablets 10mg 1 tab by Unknown 0000 mouth every day as needed Indomethacin 12/06/ Hx Capsules 25mg 90cap 1 by mouth K08.8 Nathalia, 2017 - s three times Renny. 02/24/ a day M.D. 2018 Venlafaxine HCL 12/06/ Hx Caps ER 75mg 30cap 1 by mouth F43.21 DENNIS Sloan 2017 - 24HR s every day Renny. 05/07/ M.D. 2017 Amoxicillin 03/21/ Hx Tablets 500mg 30tab 1 by mouth J03.90 Manjeet 2016 - s three times Otilio 03/31/ a day Kindra Martinez 2016 Amphetamine-Dex 11/29/ Hx Caps ER 30mg 30cap 1 by mouth F90.1 christo Sloanamphet ER 2016 - 24HR s every day Renny. 10/04/ M.D. 2017 Amphetamine-Dex 11/29/ Hx Tablets 20mg 90tab 1 tab by christo Sloanamphetamine 2016 - s mouth three Renny. 10/04/ times a day M.D. 2017 Penicillin V 11/22/ Hx Tablets 500mg 40tab 1 by mouth K04.7 Nathalia, Potassium 2016 - s four times a Renny. 12/02/ day M.D. 2016 Acetaminophen-C 11/22/ Hx Tablets 300-30mg 14tab 1 tab by K04.7 Nathalia odeine #3 2016 s mouth every Renny. 6 hours as M.D. needed pain Fluoxetine HCL 11/22/ Hx Capsules 40mg 90cap 1 by mouth Nathalia, 2016 - s every day Renny. 10/04/ M.D. 2017 Amphetamine-Dex 11/16/ Hx Caps ER 30mg 90cap 2 tabs by F90.1 Nathalia, troamphet ER 2016 - 24HR s mouth every Renny. 11/29/ day every M.D. 2016 morning and 1 in the afternoon. Viagra 11/16/ Hx Tablets 100mg 6tabs 1 by mouth N52.8 Nathalia, 2016 - 30 minutes Renny. 10/04/ before M.D. 2017 intercourse Naproxen 11/16/ Hx Tablets 500mg 60tab 1 by mouth K08.8 Nathalia, 2016 - s twice a day Renny. 12/06/ M.D. 2017 Cialis 10/11/ Hx Tablets 5mg 30tab 1 by mouth N52.2 Nathalia, 2016 - s as needed at Renny. 10/04/ least 1 hour M.D. 2017 before intercourse. Amoxicillin 09/29/ Hx Tablets 500mg 30tab 1 by mouth J01.90 Natahlia, 2016 - s three times Renny. 10/09/ a day M.D. 2016 Amphetamine-Dex 09/06/ Hx Caps ER 20mg 60cap 2 tabs by F90.1 Nathalia, troamphet ER 2016 - 24HR s mouth every Renny. 11/16/ day M.D. 2016 Sulfamethoxazol 09/06/ Hx Tablets 800-160mg 28tab 1 tab by N45.1 Nathalia e/Trimethoprim 2015 - s mouth twice Renny. DS 09/20/ a day M.D. 2016 Cipro 07/23/ Hx Tablets 500mg 14tab 1 by mouth N45.1 Nathalia, 2015 - s twice a day Renny. 07/30/ M.D. 2015 Strattera 07/21/ Hx Capsules 60mg 30cap 1 by mouth Nathalia, 2014 - s every day Renny. M.DCurtis 2014 Strattera 07/21/ Hx Capsules 80mg 30cap 1 by mouth F90.1 Nathalia, 2014 - s every day Renny. M.D. 2016 Doxycycline 07/20/ Hx Capsules 100mg 20cap 1 by mouth N45.1 Nathalia Hyclate 2014 - s twice a day Izaiah Freeman M.DCurtis 2014 Adderall XR 07/12/ Hx Caps ER 30mg 30cap 1 by mouth F90.1 Nathalia, 2014 - 24HR s every day Renny. M.DCurtis 2016 Nicoderm CQ 05/12/ Hx Patches 7mg/24HR 30uni 1 patch Nathalia, 2014 - 24HR ts every day Renny. M.DCurtis 2016 Adderall XR 05/11/ Hx Caps ER 15mg 180ca 1 tabs by F90.1 Nathalia, 2014 - 24HR ps mouth twice RennyCurtis 07/12/ a day in the M.D. 2015 morning Code B Adderall XR 05/09/ Hx Caps ER 10mg 60cap take one to F90.1 Nathalia, 2014 - 24HR s two capsules Renny. 05/11/ by mouth M.D. 2014 every day (maximum daily dose=2) Fluoxetine HCL 03/27/ Hx Capsules 40mg 90cap 1 by mouth Nathalia, 2014 - s every day Ernny. M.D. 2016 Amphetamine-Dex 03/08/ Hx Caps ER 10mg 60cap 1-2 tabs by 314.01 christo Sloanamphet ER 2015 - 24HR s mouth every Renny. 05/09/ day M.D. 2014 Fluoxetine HCL / Hx Capsules 20mg 30cap 1 by mouth Nathalia, - s every day Renny. M.D. 2015 Doxycycline / Hx Capsules 100mg 1 by mouth Unknown Hyclate 0000 - twice a day 2017 Medications Administered in Office Medication Date Status Form Strength Qnty SIG Indications Ordering Provider TB Intradermal Administered Injection Izaiah Sloan Test 018 A. M.DCurtis Immunizations CPT Code Status Date Vaccine Lot # [id number] Given 08/29/2014 Adacel-DTaP 11-64 Yrs Of Age [id number] Vital Signs Date Vital Result Comment 07/24/2018 11:38am Weight 244.38 lb BP Systolic 130 mmHg BP Diastolic 80 mmHg Body Temperature 96.6 F Height 73 inches 6'1" BMI (Body Mass Index) 32.2 kg/m2 07/06/2018 4:27pm Weight 244.00 lb BP Systolic 136 mmHg BP Diastolic 86 mmHg Body Temperature 98.0 F Height 73 inches 6'1" BMI (Body Mass Index) 32.2 kg/m2 06/05/2018 4:20pm Weight 238.00 lb BP Systolic 110 mmHg BP Diastolic 60 mmHg Body Temperature 97.5 F Height 73 inches 6'1" BMI (Body Mass Index) 31.4 kg/m2 02/24/2018 4:18pm Weight 247.12 lb BP Systolic 140 mmHg BP Diastolic 88 mmHg Body Temperature 98.8 F Height 73 inches 6'1" BMI (Body Mass Index) 32.6 kg/m2 11/24/2017 2:06pm Weight 253.00 lb BP Systolic 140 mmHg BP Diastolic 80 mmHg Body Temperature 97.7 F Height 73 inches 6'1" BMI (Body Mass Index) 33.4 kg/m2 05/07/2017 3:22pm Weight 245.00 lb BP Systolic 142 mmHg BP Diastolic 90 mmHg Body Temperature 97.9 F Height 73 inches 6'1" BMI (Body Mass Index) 32.3 kg/m2 12/06/2016 9:25am Weight 243.00 lb BP Systolic 126 mmHg BP Diastolic 84 mmHg Body Temperature 97.7 F Height 73 inches 6'1" Heart Rate 64 /min BMI (Body Mass Index) 32.1 kg/m2 10/04/2016 10:29am Weight 241.75 lb BP Systolic 110 mmHg BP Diastolic 70 mmHg Body Temperature 97.8 F Height 73 inches 6'1" Heart Rate 72 /min BMI (Body Mass Index) 31.9 kg/m2 04/25/2016 1:14pm Weight 244.00 lb BP Systolic 120 mmHg BP Diastolic 70 mmHg Body Temperature 98.5 F Height 73 inches 6'1" Heart Rate 88 /min BMI (Body Mass Index) 32.2 kg/m2 03/21/2016 9:56am Weight 243.00 lb BP Systolic 144 mmHg BP Diastolic 98 mmHg Body Temperature 98.1 F Height 73 inches 6'1" BMI (Body Mass Index) 32.1 kg/m2 11/23/2015 3:51pm Weight 230.38 lb BP Systolic 120 mmHg BP Diastolic 80 mmHg Body Temperature 98.0 F Height 73 inches 6'1" Heart Rate 64 /min BMI (Body Mass Index) 30.4 kg/m2 11/17/2015 10:53am Weight 230.00 lb BP Systolic 138 mmHg BP Diastolic 90 mmHg Body Temperature 98.4 F Height 73 inches 6'1" Heart Rate 60 /min BMI (Body Mass Index) 30.3 kg/m2 2015 1:52pm Weight 221.00 lb BP Systolic 149 mmHg BP Diastolic 84 mmHg Body Temperature 97.5 F 09/29/2015 10:30am Weight 211.12 lb BP Systolic 114 mmHg BP Diastolic 72 mmHg Body Temperature 97.7 F 09/06/2015 3:28pm Weight 217.00 lb BP Systolic 110 mmHg BP Diastolic 80 mmHg Body Temperature 97.6 F 07/20/2015 3:51pm Weight 217.00 lb BP Systolic 124 mmHg BP Diastolic 76 mmHg Body Temperature 98.1 F 05/11/2015 11:35am Weight 215.00 lb BP Systolic 122 mmHg BP Diastolic 74 mmHg Body Temperature 97.7 F 03/30/2015 3:54pm Weight 225.00 lb BP Systolic 130 mmHg BP Diastolic 80 mmHg Body Temperature 98.4 F 03/08/2015 4:24pm Weight 232.00 lb BP Systolic 140 mmHg BP Diastolic 90 mmHg Body Temperature 98.3 F 01/24/2015 4:18pm Weight 228.00 lb BP Systolic 120 mmHg BP Diastolic 84 mmHg Body Temperature 97.9 F 01/18/2015 4:21pm Weight 236.00 lb BP Systolic 114 mmHg BP Diastolic 76 mmHg Body Temperature 98.2 F Results Test Date Facility Test Result H/L Range Note CT/GC Amplified 07/20/2015 [facility] C. Trachomatis NEGATIVE (Neg) 1 N. Gonorrhoeae NEGATIVE (Neg) 2 Comment IMPORTANT REM <SEE NOTE> 3 Laboratory test finding 07/20/2015 [facility] Urine Culture SPECIMEN DESCRI> 4 1 SOURCE - URINE, COLLECTION METHOD NOT SPECIFIED BY AMPLIFIED DNA PROBE PERFORMED BY [address] [address] 2 SOURCE - URINE, COLLECTION METHOD NOT SPECIFIED BY AMPLIFIED DNA PROBE PERFORMED BY [address] [address] 3 IMPORTANT REMINDERS ABOUT URINE SPECIMEN COLLECTION THE PATIENT SHOULD NOT HAVE URINATED FOR AT LEAST ONE HOUR PRIOR TO COLLECTION. FEMALE PATIENTS SHOULD NOT CLEANSE PRIOR TO COLLECTING URINE SPECIMENS THIS MAY INTERFERE WITH THE TEST. THE PATIENT SHOULD PROVIDE 20-30 ML OF THE INITIAL URINE STREAM INTO A CONTAINER WITHOUT PRESERVATIVES. 4 SPECIMEN DESCRIPTION URINE, COLLECTION METHOD NOT SPECIFIED CULTURE RESULTS <10,000 CFU/ML REPRESENTING URETHRAL QUINTIN REPORT STATUS FINAL 07/22/2015 Procedures Date Code Description Status 07/06/2018 03579 Dest Benign Lesions Other Than Skin Tag Or Cutaneous Completed Vascular Les 06/05/2018 74202 Audiogram/Pure Tone Hearing Test Completed Encounters Type Date Location Provider Dx Diagnosis Office Visit 06/05/2018 Main Office Izaiah Sloan M.D. Z00.01 Encounter for 4:30p general adult medical exam w abnormal findings F90.1 Attn-defct hyperactivity disorder, predom hyperactive type E66.9 Obesity, unspecified Office Visit 02/24/2018 4:00p Main Office Izaiah Sloan F90.1 Attn-defct M.D. hyperactivity disorder, predom hyperactive type E66.9 Obesity, unspecified Office Visit 11/24/2017 2:10p Main Office Izaiah Sloan F90.1 Attn-defct M.D. hyperactivity disorder, predom hyperactive type E66.9 Obesity, unspecified F17.210 Nicotine dependence, cigarettes, uncomplicated J30.9 Allergic rhinitis, unspecified Office Visit 05/07/2017 3:00p Main Office Izaiah Sloan M54.5 Low back pain M.D. Office Visit 12/06/2016 9:30a Main Office Izaiah Sloan F90.1 Attn-defct M.D. hyperactivity disorder, predom hyperactive type M54.5 Low back pain F43.21 Adjustment disorder with depressed mood Office Visit 10/04/2016 11:20a Main Office Izaiah Sloan J45.20 Mild intermittent M.D. asthma, uncomplicated F90.1 Attn-defct hyperactivity disorder, predom hyperactive type Office Visit 04/25/2016 1:20p Main Office Izaiah Sloan B34.9 Viral infection, M.D. unspecified Office Visit 03/21/2016 10:00a Main Office [place]rough[place], J03.90 Acute tonsillitis, Otilio Martinez M.D. unspecified Office Visit 11/23/2015 3:50p Main Office Izaiah Sloan F90.1 Attn-defct M.D. hyperactivity disorder, predom hyperactive type K04.7 Periapical abscess without sinus Office Visit 11/17/2015 10:40a Main Office Izaiah Sloan F90.1 Attn-defct M.D. hyperactivity disorder, predom hyperactive type F43.21 Adjustment disorder with depressed mood N52.8 Other male erectile dysfunction K08.8 Other specified disorders of teeth and supporting structures Office Visit 2015 2:00p Main Office Izaiah Sloan90.1 Attn-defct M.D. hyperactivity disorder, predom hyperactive type F43.21 Adjustment disorder with depressed mood N52.2 Drug-induced erectile dysfunction Office Visit 09/29/2015 10:20a Main Office Izaiah Sloan J06.9 Acute upper M.D. respiratory infection, unspecified J01.90 Acute sinusitis, unspecified Office Visit 09/06/2015 3:30p Main Office Izaiah Sloan F43.21 Adjustment disorder M.D. with depressed mood F90.1 Attn-defct hyperactivity disorder, predom hyperactive type N45.1 Epididymitis Office Visit 07/20/2015 3:50p Main Office Izaiah SloanD. R30.0 Dysuria N45.1 Epididymitis Office Visit 05/11/2015 11:30a Main Office Izaiah Sloan F43.21 Adjustment disorder M.D. with depressed mood F90.1 Attn-defct hyperactivity disorder, predom hyperactive type Office Visit 03/30/2015 3:40p Main Office Izaiah Sloan 309.0 Adjustment Disorder M.D. With Depression Office Visit 03/08/2015 4:20p Main Office Izaiah Sloan 311 Depressive Disorder M.D. Not Elsewhere Spec 314.01 Attention Deficit Disorder W/ Hyperactivity Office Visit 01/24/2015 4:10p Main Office Izaiah Sloan 311 Depressive Disorder M.D. Not Elsewhere Spec Office Visit 01/18/2015 4:20p Main Office Izaiah Sloan 311 Depressive Disorder M.D. Not Elsewhere Spec Plan of Treatment 07/24/2018 - Izaiah Sloan M.D.F90.1 Attention-deficit hyperactivity disorder, predominantly hypeComments:Please continue to work on exercise.Follow up:5 ftmofmP60.9 Acute upper respiratory infection, unspecifiedComments:Symptomatic therapy with fluids, rest and chicken noodle soup. AFRIN (or generic) in a pump/ mist bottle. max 5-7 days of use ONLY. Longer use can cause "addiction". Drop head down, nose to toes, when doing spray. Get the pump bottle because it gets further back to decongest the sinuses. Especially before bed. Colds generally will last 9-12 days. Antibiotics are not helpful with colds.J98.01 Acute bronchospasmNew Medication:Prednisone 20 mg - 3 tab by mouth every day for 3 days then 2 by mouth daily for 3 days then 1 by mouth daily for 3 daysComments: Side effects of Prednisone can include more energy, insomnia, weird dreams, and an appetite that doesn't stop.E66.9 Obesity, unspecifiedComments:Smaller portions and decrease carbohydrates. 16oz water before every meal. avoid snacking when not hungry, no soda. Goal weight loss is 2-4 lbs/ month
[2018-07-26 12:42] VITALS: BP 149/86
--- NOTE | 2018-07-26 12:58 | UC ---
UC General HPI - HPI Summary HPI Summary: pt c/o pain in his R lower abdomen since last pm. states worse this am. no fever, n/v/d or dysuria. no testicular pain. no injury. states " my mothers appendicitis was the same". - History of Current Complaint Chief Complaint: UCAbdominalPain Stated Complaint: ABDOMINAL PAIN RIGHT Time Seen by Provider: 07/26/18 12:50 Hx Obtained From: Patient Timing: Constant Pain Intensity: 7 Aggravating: movement - Allergy/Home Medications Allergies/Adverse Reactions: Allergies Allergy/AdvReac Type Severity Reaction Status Date / Time environmental Allergy Congestion Uncoded 07/26/18 12:40 PMH/Surg Hx/FS Hx/Imm Hx - Additional Past Medical History Additional PMH: ADHD, ALLERGIES - Surgical History Surgical History: None Surgery Procedure, Year, and Place: denies - Family History Known Family History: Positive: Cardiac Disease, Hypertension, Diabetes - Social History Lives: With Family Alcohol Use: Rare Substance Use Type: None Substance Use Comment - Amount & Last Used: prior marijuana use- last year Smoking Status (MU): Light Every Day Tobacco Smoker Type: eCigarettes Amount Used/How Often: 1 pk per wk Length of Time of Smoking/Using Tobacco: ON AND OFF FOR 7 YRS Have You Smoked in the Last Year: Yes When Did the Patient Quit Smoking/Using Tobacco: 09/03/13 Household Exposure Type: Cigarettes - Immunization History Most Recent Influenza Vaccination: not this season Most Recent Tetanus Shot: unknown Vaccination Up to Date: Yes Review of Systems All Other Systems Reviewed And Are Negative: Yes Constitutional: Positive: Negative Skin: Positive: Negative Eyes: Positive: Negative ENT: Positive: Negative Respiratory: Positive: Negative Cardiovascular: Positive: Negative Gastrointestinal: Positive: Abdominal Pain Genitourinary: Negative: Dysuria, Hematuria, Frequency, Urgency, Vaginal/Penile Burning, Vaginal/Penile Itching, Vaginal/Penile Discharge, Vaginal/Penile Pain Motor: Positive: Negative Neurovascular: Positive: Negative Musculoskeletal: Positive: Negative Neurological: Positive: Negative Psychological: Positive: Negative Is Patient Immunocompromised?: No Physical Exam Triage Information Reviewed: Yes Appearance: Well-Appearing Vital Signs: Initial Vital Signs Temp 97.7 F 07/26/18 12:38 Pulse 97 07/26/18 12:38 Resp 16 07/26/18 12:38 BP 149/86 07/26/18 12:38 Pulse Ox 100 07/26/18 12:38 Vital Signs Reviewed: Yes Eyes: Positive: Conjunctiva Clear ENT: Positive: Pharynx normal, TMs normal. Negative: Nasal congestion, Nasal drainage Neck: Positive: Supple, Nontender, No Lymphadenopathy Respiratory: Positive: Lungs clear, Normal breath sounds Cardiovascular: Positive: RRR, No Murmur Abdomen Description: Positive: Other: - TENDER RLQ WITH QUARDING BUT NO REBOUND. NO MASS, HSM OR CVA TENDERNSS Bowel Sounds: Positive: Hyperactive Male Genital Exam: Positive: Normal Genitalia. Negative: Testicular Tenderness (R), Testicular Tenderness (L) Musculoskeletal: Positive: ROM Intact Neurological: Positive: Alert Psychological: Positive: Age Appropriate Behavior Skin Exam: Normal Course/Dx - Differential Dx - Multi-Symptom Differential Diagnoses: Other - DOUBT RENAL COLIC OR UTI. EXAM UNREMARKABLE THUS NO CONCERN FOR TESTICULAR TORSION. RLQ PAIN AND GUARDING THUS MUST EXCLUDE APPENDICITIS. PT AGREES TO ER TRANSFER. [facility] ER CALLED, REPORT GIVEN TO SHANNAN TRACY NP. ADVISED OF RLQ PAIN. - Diagnoses Provider Diagnosis: RLQ abdominal pain Discharge - Sign-Out/Discharge Documenting (check all that apply): Patient Departure All imaging exams completed and their final reports reviewed: No Studies - Discharge Plan Condition: Stable Disposition: TRANS HIGHER LVL OF CARE FAC Referrals: Izaiah Sloan MD [Primary Care Provider] - Additional Instructions: leave here and go directly to the [facility] er from here as discussed. do not eat or drink. - Billing Disposition and Condition Condition: STABLE Disposition: Trans Higher Lvl of Care Fac
== END 2018-07-26 13:05 | disposition short-term general hospital (02) ==
LOC: UCCORT 12:26
DX: R10.31 Right lower quadrant pain (principal); Z87.891 Personal history of nicotine dependence
CPT/HCPCS: 99212; G0463

== ENCOUNTER 2019-04-29 20:49 | Emergency (ER) | payer MEDICAID, OTHER ==
[2019-04-29 21:05] VITALS: BP 136/88
[2019-04-29] MEDS ORDERED: Albuterol/Ipratropium NEB.SOL* Albuterol 2.5 MG/Ipratropium 0.5 MG 3 ML INH ONE (21:13)
[2019-04-29] MEDS ORDERED: predniSONE TAB* 20 MG PO ONE (21:13)
[2019-04-29] MEDS ORDERED: Azithromycin TAB* 250 MG PO ONE (21:13)
--- NOTE | 2019-04-29 21:19 | ED ---
Respiratory - HPI Summary HPI Summary: 28 yr old male with the complaint of coughing, sore throat, runny nose, post nasal drip, green sputum and nasal drainage. Denies chest pain. He has some SOB with coughing spells. He stopped smoking three days ago with onset of his illness. - History of Current Complaint Chief Complaint: UCRespiratory Stated Complaint: SORE THROAT,COUGH Time Seen by Provider: 04/29/19 21:05 Pain Intensity: 0 - Allergy/Home Medications Allergies/Adverse Reactions: Allergies Allergy/AdvReac Type Severity Reaction Status Date / Time environmental Allergy Congestion Uncoded 04/29/19 20:59 Home Medications: Home Medications Dextroamphetamine/Amphetamine [Adderall 10 mg-] 1 tab PO DAILY PRN 04/29/19 [ History Confirmed 04/29/19] FLUoxetine CAP* [PROzac CAP*] 10 mg PO DAILY 04/29/19 [History Confirmed ] PMH/Surg Hx/FS Hx/Imm Hx Endocrine/Hematology History: Denies: Hx Diabetes, Hx Thyroid Disease Cardiovascular History: Denies: Hx Hypertension Respiratory History: Denies: Hx Asthma, Hx Chronic Obstructive Pulmonary Disease (COPD) GI History: Denies: Hx Ulcer Neurological History: Denies: Hx Transient Ischemic Attacks (TIA) Psychiatric History: Reports: Hx Anxiety - ADHD, Hx Depression - Surgical History Surgery Procedure, Year, and Place: denies Infectious Disease History: Yes Infectious Disease History: Reports: Hx of Known/Suspected MRSA Denies: Hx Hepatitis, Hx Human Immunodeficiency Virus (HIV), Traveled Outside the [place] in Last 30 Days - Family History Known Family History: Positive: Cardiac Disease, Hypertension, Diabetes - Social History Alcohol Use: Rare Substance Use Type: Reports: None Substance Use Comment - Amount & Last Used: prior marijuana use- last year Smoking Status (MU): Former Smoker Type: Cigarettes, eCigarettes Amount Used/How Often: 1 pk per wk Length of Time of Smoking/Using Tobacco: ON AND OFF FOR 7 YRS Have You Smoked in the Last Year: Yes Review of Systems Constitutional: Negative Positive: Sore Throat, Ear Ache, Nasal Discharge Positive: Cough All Other Systems Reviewed And Are Negative: Yes Physical Exam Triage Information Reviewed: Yes Vital Signs On Initial Exam: Initial Vitals Temp Pulse Resp BP Pulse Ox 98.3 F 87 16 136/88 98 04/29/19 21:01 04/29/19 21:01 04/29/19 21:01 04/29/19 21:01 04/29/19 21:01 Vital Signs Reviewed: Yes Appearance: Positive: Well-Appearing, No Pain Distress Skin: Positive: Warm, Skin Color Reflects Adequate Perfusion Head/Face: Positive: Normal Head/Face Inspection Eyes: Positive: EOMI ENT: Positive: Pharyngeal erythema, Nasal congestion, Nasal drainage, TM red - left with pain, Sinus tenderness Neck: Positive: Nontender Respiratory/Lung Sounds: Positive: Breath Sounds Present, Decreased Breath Sounds. Negative: Stridor Cardiovascular: Positive: RRR. Negative: Murmur Abdomen Description: Negative: Distended Musculoskeletal: Positive: Strength/ROM Intact. Negative: Edema Left, Edema Right Neurological: Positive: Sensory/Motor Intact, Alert, Oriented to Person Place, Time, CN Intact II-III, Speech Normal Psychiatric: Positive: Normal Diagnostics - Vital Signs Vital Signs Temp Pulse Resp BP Pulse Ox 04/29/19 21:01 98.3 F 87 16 136/88 98 - Laboratory Lab Statement: Any lab studies that have been ordered have been reviewed, and results considered in the medical decision making process. Disposition - Course Course Of Treatment: 28 yr old with Left Otitis media, acute bronchitis. Rx with zithromax, prednisone and albuterol . - Diagnoses Provider Diagnoses: Left otitis media, Acute bronchitis Discharge ED - Sign-Out/Discharge Documenting (check all that apply): Patient Departure All imaging exams completed and their final reports reviewed: No Studies - Discharge Plan Condition: Good Disposition: HOME Prescriptions: Albuterol HFA INHALER* [Ventolin HFA Inhaler*] 1 - 2 puff INH Q6H PRN #1 mdi PRN Reason: Cough Azithromycin TAB* [Zithromax TAB (Z-SAGAR) 250 mg #6 tabs] 2 tab PO .TODAY, THEN 1 DAILY #1 sagar predniSONE TAB* [Deltasone 20 MG TAB*] 40 mg PO DAILY #8 tab Patient Education Materials: Ear Infection (ED), Acute Bronchitis (ED) Referrals: Izaiah Sloan MD [Primary Care Provider] - 2 Days - Billing Disposition and Condition Condition: GOOD Disposition: Home
== END 2019-04-29 21:39 | disposition home or self-care (01) ==
LOC: UCCORT 20:49
DX: H66.92 Otitis media, unspecified, left ear (principal); J20.9 Acute bronchitis, unspecified; F90.9 Attention-deficit hyperactivity disorder, unspecified type; F41.9 Anxiety disorder, unspecified; F32.9 Major depressive disorder, single episode, unspecified; Z87.891 Personal history of nicotine dependence
CPT/HCPCS: 99213; A9270-GY; G0463; J7512

== ENCOUNTER 2019-07-31 20:33 | Emergency (ER) | payer MEDICAID, OTHER ==
--- OUTSIDE RECORDS SUMMARY | 2019-07-31 20:42 | XMS REPORT | Continuity of Care Document ---
:1990 External Reference #:[id number] Author Name Izaiah Sloan M.D. (transmitted by agent of provider Patito Mazariegos) Address [address] [place] [address] Care Team Providers Name Role Phone Izaiah Sloan M.D. Care Team Information Healthcare Social Worker [phone] Problems Active Problems Provider Date Attention deficit hyperactivity disorder Izaiah Sloan M.D. Onset: 2018 Mild intermittent asthma Izaiah Sloan M.D. Onset: 12/24/2018 Social History Type Date Description Comments Sex Unknown Tobacco Use Start: Unknown Light tobacco smoker (10 or 6 per day fewer cigarettes/day) ETOH Use Occasionally consumes alcohol Recreational Drug Use Denies Drug Use Tobacco Use Reviewed: 06/25/19 Light tobacco smoker (10 or 3 cig. per day fewer cigarettes/day) Smoking Status Reviewed: 06/25/19 Light tobacco smoker (10 or 3 cig. per day fewer cigarettes/day) Tattoo/Piercing Pierced ears Tattoo/Piercing Pierced nipples Tattoo/Piercing Pierced tongue Sun Exposure Does not use sunscreen Sun Exposure 11/23/2015 Uses greater than 30 SPF Seat Belt/Car Seat Always uses seat belt Smoke Alarms Yes Allergies, Adverse Reactions, Alerts Active Allergies Reaction Severity Comments Date NKDA 01/18/2015 Environmental 02/24/2018 Medications Active Medications SIG Qnty Indications Ordering Date Provider Nicotine Transdermal apply 1 patch to 28units F17.210 Izaiah Sloan 03/26 System Step 2 skin every 24 M.D. 14mg/24HR hours for smoking Patches 24HR cessation Fluoxetine HCL 1 by mouth every 30caps F43.21 Izaiah Sloan 12/25/2018 20mg day M.D. Capsules Amphetamine-Dextroamp 1 tab by mouth 30tabs F90.1 Izaiah Sloan 2017 hetamine every day in the M.D. 10mg Tablets afternoon Montelukast Sodium 1 tab by mouth 30tabs J45.20 Izaiah Sloan 10/04/2016 10mg every evening M.D. Tablets Amphetamine-Dextroamp 1 by mouth every 30caps F90.1 Izaiah Slaon 2016 het ER day M.D. 30mg Caps ER 24HR Acetaminophen Extra 2 by mouth every Izaiah Sloan 11/17/2015 Strength 4 times per day. M.D. 500mg Tablets Cetirizine HCL 1 tab by mouth 30tabs Izaiah Sloan 10mg every day as M.D. Tablets needed Medications Administered in Office Medication SIG Qnty Indications Ordering Provider Date TB Intradermal Test Iaziah Sloan M.D. 06/05/2018 Injection Immunizations CPT Code Status Date Vaccine Lot # [id number] Given 05/21/2019 Adacel-DTaP 11-64 Yrs Of Age [id number] Given 08/29/2014 Adacel-DTaP 11-64 Yrs Of Age [id number] Vital Signs Date Vital Result Comment 06/25/2019 11:19am Weight 233.00 lb BP Systolic 130 mmHg BP Diastolic 86 mmHg Body Temperature 98.1 F Height 73 inches 6'1" BMI (Body Mass Index) 30.7 kg/m2 03/26/2019 9:08am Weight 237.00 lb BP Systolic 130 mmHg BP Diastolic 70 mmHg Body Temperature 97.8 F Height 73 inches 6'1" BMI (Body Mass Index) 31.3 kg/m2 Results Description No Information Available Procedures Description No Information Available Medical Devices Description No Information Available Encounters Type Date Location Provider Dx Diagnosis Office Visit 03/26/2019 Main Office Izaiah Sloan F43.21 Adjustment disorder 8:30a M.D. with depressed mood F90.1 Attn-defct hyperactivity disorder, predom hyperactive type F17.210 Nicotine dependence, cigarettes, uncomplicated M54.5 Low back pain Office Visit 01/29/2019 8:50a Main Office Izaiah Sloan F43.21 Adjustment disorder M.D. with depressed mood E66.9 Obesity, unspecified Office Visit 12/25/2018 9:30a Main Office Izaiah Sloan F90.1 Attkaran-kory Arguelles hyperactivity disorder, predom hyperactive type F43.21 Adjustment disorder with depressed mood Assessments Date Code Description Provider 06/25/2019 E66.9 Obesity, unspecified Izaiah Sloan M.D. 05/21/2019 Z23 Encounter for immunization Izaiah Sloan M.D. 03/26/2019 F43.21 Adjustment disorder with depressed mood Izaiah Sloan M.D. 03/26/2019 F90.1 Attention-deficit hyperactivity disorder, Izaiah Sloan M.D. predominantly hype 03/26/2019 F17.210 Nicotine dependence, cigarettes, uncomplicated Izaiah Sloan M.D. 03/26/2019 M54.5 Low back pain Izaiah Sloan M.D. 01/29/2019 F43.21 Adjustment disorder with depressed mood Izaiah Sloan M.D. 01/29/2019 E66.9 Obesity, unspecified Izaiah Sloan M.D. 12/25/2018 F90.1 Attention-deficit hyperactivity disorder, Izaiah Sloan M.D. predominantly hype 12/25/2018 F43.21 Adjustment disorder with depressed mood Izaiah Sloan M.D. Plan of Treatment No Information Available Functional Status Functional Condition Comment Date Status Glasses Active Mental Status Description No Information Available Referrals Description No Information Available
[2019-07-31 20:46] VITALS: BP 129/86
--- NOTE | 2019-07-31 20:51 | UC ---
Throat Pain/Nasal Deep HPI - HPI Summary HPI Summary: C/O sore throat x 2 weeks with some coughing and nasal discharge, but exposed to strep and would like to be tested. - History of Current Complaint Stated Complaint: ST Hx Obtained From: Patient Onset/Duration: Sudden Onset, Lasting Weeks - 2, Still Present Severity: Moderate Cough: Productive Associated Signs & Symptoms: Positive: Dysphagia, Wheezing, Nasal Discharge. Negative: Fever, Vomiting, Rash Related History: Seasonal Allergies, Smoking - Just quit 2 days ago - Allergies/Home Medications Allergies/Adverse Reactions: Allergies Allergy/AdvReac Type Severity Reaction Status Date / Time environmental Allergy Congestion Uncoded 07/31/19 20:46 PMH/Surg Hx/FS Hx/Imm Hx Respiratory History: Asthma - Surgical History Surgical History: None Surgery Procedure, Year, and Place: denies - Family History Known Family History: Positive: Cardiac Disease, Hypertension, Diabetes - Social History Occupation: Employed Full-time Lives: With Family Alcohol Use: Rare Substance Use Type: None Substance Use Comment - Amount & Last Used: prior marijuana use- last year Smoking Status (MU): Former Smoker Type: Cigarettes, eCigarettes Amount Used/How Often: 1 pk per wk Length of Time of Smoking/Using Tobacco: ON AND OFF FOR 7 YRS Have You Smoked in the Last Year: Yes When Did the Patient Quit Smoking/Using Tobacco: 09/03/13 Household Exposure Type: Cigarettes - Immunization History Most Recent Influenza Vaccination: not this season Most Recent Tetanus Shot: unknown Vaccination Up to Date: Yes Review of Systems All Other Systems Reviewed And Are Negative: Yes ENT: Positive: Sore Throat, Nasal Discharge Respiratory: Positive: Shortness Of Breath - wheezing better with the inhaler, Cough Is Patient Immunocompromised?: No Physical Exam Triage Information Reviewed: Yes Appearance: Well-Appearing, No Pain Distress, Well-Nourished Vital Signs Reviewed: Yes Eyes: Positive: Conjunctiva Clear ENT: Positive: Nasal congestion, TMs normal - right TM obscurred by wax.. Negative: Sinus tenderness Neck exam: Normal Respiratory: Positive: Wheezing - expiratory wheezes with coughing Cardiovascular Exam: Normal Musculoskeletal Exam: Normal Neurological Exam: Normal Psychological Exam: Normal Skin Exam: Normal Throat Pain/Nasal Course/Dx - Differential Dx/Diagnosis Differential Diagnosis/HQI/PQRI: Pharyngitis, Sinusitis, Tonsillitis, URI Provider Diagnosis: Acute bronchospasm Discharge ED - Sign-Out/Discharge Documenting (check all that apply): Patient Departure All imaging exams completed and their final reports reviewed: No Studies - Discharge Plan Condition: Stable Disposition: HOME Prescriptions: Albuterol HFA INHALER* [Ventolin HFA Inhaler*] 1 - 2 puff INH Q6H PRN #1 mdi PRN Reason: Cough predniSONE TAB* [Deltasone 20 MG TAB*] 60 mg PO DAILY #18 tab Patient Education Materials: Bronchospasm (ED), Pharyngitis (ED) Referrals: Izaiah Sloan MD [Primary Care Provider] - - Billing Disposition and Condition Condition: STABLE Disposition: Home
== END 2019-07-31 21:08 | disposition home or self-care (01) ==
LOC: UCCORT 20:33
DX: J45.909 Unspecified asthma, uncomplicated (principal); J06.9 Acute upper respiratory infection, unspecified; J34.89 Other specified disorders of nose and nasal sinuses; Z87.891 Personal history of nicotine dependence; Z91.09 Other allergy status, other than to drugs and biological substances
CPT/HCPCS: 87651; 99212; G0463

== ENCOUNTER 2019-11-03 11:58 | Emergency (ER) | payer OTHER ==
[2019-11-03 12:26] VITALS: BP 139/87
--- NOTE | 2019-11-03 12:31 | UC ---
Throat Pain/Nasal Deep HPI - HPI Summary HPI Summary: 29-year-old male with cold symptoms for the past 2 days. He denies any fever or chills. He is a smoker. He denies any history of asthma however he does have an albuterol inhaler he's been using for the past day. - History of Current Complaint Chief Complaint: UCRespiratory Stated Complaint: UPPER RESP CONCERN Time Seen by Provider: 11/03/19 12:29 Hx Obtained From: Patient Onset/Duration: Gradual Onset Severity: Mild Pain Intensity: 0 Associated Signs & Symptoms: Positive: Wheezing, Nasal Discharge - Allergies/Home Medications Allergies/Adverse Reactions: Allergies Allergy/AdvReac Type Severity Reaction Status Date / Time environmental Allergy Congestion Uncoded 11/03/19 12:22 Home Medications: Home Medications Amphetamine MIXED SALT TAB* [Adderall TAB*] 30 mg PO DAILY 01/25/18 [History Confirmed 11/03/19] Cetirizine* [ZyrTEC 10 MG TAB*] 10 mg PO BEDTIME 01/27/18 [History Confirmed ] Montelukast Sodium 10 mg PO BEDTIME #30 tablet 05/16/18 [Rx Confirmed 11/03/19] FLUoxetine CAP* [Prozac CAP*] 10 mg PO DAILY 04/29/19 [History Confirmed ] Albuterol HFA INHALER* [Ventolin HFA Inhaler*] 1 - 2 puff INH Q6H PRN #1 mdi [Rx Confirmed 11/03/19] Benzonatate CAP* [Tessalon 100 MG CAP*] 100 mg PO TID PRN #30 cap 11/03/19 [Rx] predniSONE 10 mg TAB [Deltasone 10 MG TAB*] 10 mg PO DAILY 12 Days #30 tab 11/02 [Rx] PMH/Surg Hx/FS Hx/Imm Hx Previously Healthy: Yes Respiratory History: Asthma - Patient denies and asthma history of however he does have an albuterol inhaler of his own. - Surgical History Surgical History: None Surgery Procedure, Year, and Place: denies - Family History Known Family History: Positive: Cardiac Disease, Hypertension, Diabetes - Social History Alcohol Use: Rare Substance Use Type: None Substance Use Comment - Amount & Last Used: prior marijuana use- last year Smoking Status (MU): Former Smoker Type: Cigarettes, eCigarettes Amount Used/How Often: 1 pk per wk Length of Time of Smoking/Using Tobacco: 3 weeks ago Have You Smoked in the Last Year: Yes When Did the Patient Quit Smoking/Using Tobacco: 09/03/13 Household Exposure Type: Cigarettes - Immunization History Most Recent Influenza Vaccination: not this season Most Recent Tetanus Shot: unknown Vaccination Up to Date: Yes Review of Systems All Other Systems Reviewed And Are Negative: Yes Respiratory: Positive: Cough - Nonproductive cough, occasional wheezing patient has been using his Albuterol inhaler over the past day. Is Patient Immunocompromised?: No Physical Exam Triage Information Reviewed: Yes Appearance: Well-Appearing, No Pain Distress, Well-Nourished Vital Signs: Initial Vital Signs Temp 98.1 F 11/03/19 12:21 Pulse 102 11/03/19 12:21 Resp 18 11/03/19 12:21 BP 139/87 11/03/19 12:21 Pulse Ox 99 11/03/19 12:21 Vital Signs Reviewed: Yes Eyes: Positive: Conjunctiva Clear ENT: Positive: Pharynx normal, TMs normal, Uvula midline Neck: Positive: Supple, Nontender, No Lymphadenopathy Respiratory: Positive: No respiratory distress, No accessory muscle use, Wheezing - Very mild expiratory wheezing with forced expiration. No distress. Cardiovascular: Positive: RRR, No Murmur, Pulses Normal, Brisk Capillary Refill Musculoskeletal Exam: Normal Neurological Exam: Normal Psychological Exam: Normal Skin Exam: Normal Throat Pain/Nasal Course/Dx - Course Course Of Treatment: Patient is comfortable here and in no distress. He is to continue his albuterol inhaler 2 puffs every 4-6 hours as needed for wheezing or tight cough and I am going to start him on tapering dose of prednisone. He is advised to stop smoking. - Differential Dx/Diagnosis Provider Diagnosis: Bronchitis Discharge ED - Sign-Out/Discharge Documenting (check all that apply): Patient Departure All imaging exams completed and their final reports reviewed: No Studies - Discharge Plan Condition: Good Disposition: HOME Prescriptions: Benzonatate CAP* [Tessalon 100 MG CAP*] 100 mg PO TID PRN #30 cap PRN Reason: Cough predniSONE 10 mg TAB [Deltasone 10 MG TAB*] 10 mg PO DAILY 12 Days #30 tab Patient Education Materials: Acute Bronchitis (ED) Forms: *Work Release Referrals: Izaiah Sloan MD [Primary Care Provider] - Additional Instructions: Increase fluids, use her albuterol inhaler 2 puffs every 4-6 hours as needed for wheezing or tight cough. Take the prednisone with food. Follow-up with your primary care provider if no improvement in 4 or 5 days. - Billing Disposition and Condition Condition: GOOD Disposition: Home
== END 2019-11-03 12:48 | disposition home or self-care (01) ==
LOC: UCCORT 11:58
DX: J40 Bronchitis, not specified as acute or chronic (principal); Z87.891 Personal history of nicotine dependence; Z91.09 Other allergy status, other than to drugs and biological substances; Z79.52 Long term (current) use of systemic steroids
CPT/HCPCS: 99212; G0463